=== PATIENT | female | born 1935 | race Asian ===

== ENCOUNTER → 2018-08-01 | Outpatient (CLI) | payer MEDICARE, OTHER ==
[~2018-08-01] MED LIST: ALEN70TA43 PO; ATOR10TA24 PO; CHOL200025 PO; CYA1000 PO; EXEM25TA4 PO; FISH1CAP15 PO; FLAX100029 PO; FLU180SY11 IM; TELM1TAB18 PO; VITA-198 PO
[2018-08-01 12:13] LABS: PLATELET COUNT, AUTOMATED 295 K/uL (150-450)
== END ==
LOC: LAB 11:41
PROVIDERS: ATTEND Family Medicine
DX: I10 Essential (primary) hypertension (principal)
CPT/HCPCS: 36415; 82040; 82247; 82310; 82374; 82435; 82565; 82947; 84075; 84132; 84155; 84295; 84450; 84460; 84520; 85025

== ENCOUNTER → 2018-08-17 | Outpatient (CLI) | payer MEDICARE, OTHER ==
--- NOTE | 2018-08-17 13:33 | RADIOLOGY IMAGING REPORT ---
FACILITY: [facility] - [place] PATIENT NAME: Jem Thomas : 1935 MR: [id number] V: [id number] EXAM DATE: ORDERING PHYSICIAN: SHIKHA MENDEZ TECHNOLOGIST: Location: [facility] - [place] Patient: Jem Thomas : 1935 Visit/Account:[id number] Date of Sevice: 08/17/2018 DEXA Scan Clinical history: Osteoporosis. Comparison: None available. LUMBAR SPINE: The bone mineral density (BMD) measured from L1-L4 correlates with a Z-score 2.3 and a T-score of 0.3 which is Normal as defined by the World Health Organization. The corresponding risk of fracture in the lumbar spine is Not increased compared with a young adult reference population. HIP: Bone mineral density (BMD) measured in the Left total hip region correlates with a Z-score 0.8 and a T-score of -1.5 which is osteopenia as defined by the World Health Organization. The corresponding r isk of fracture in the hip is 3 times increased compared with a young adult reference population. T score left femoral neck -2.5 Bone mineral density (BMD) measured in the Femoral Neck region measures 0.696 g/cm2. Impression: 1. Lumbar spine: Normal. 2. Left Hip: Osteopenia. 3. Femoral Neck: Bone Mineral Density is 0.696 g/cm2 The next DEXA scan of this patient should include the following sites: L1-L4 and the left hip. FRAX? WHO Fracture Risk Assessment Tool link: <http://www.shef.ac.uk/FRAX/tool.jsp?locationValue=9> PLEASE NOTE: 1) The World Health Organization defines low BMD as follows: T-score Normal > -1 Osteopenia < -1 and > -2.5 Osteoporosis < -2.5 without fractures Established osteoporosis < -2.5 with fractures 2) In general, you may wish to consider: Diagnosis Treatment Follow-up DEXA Normal BMD Prevention 2-3 years Osteopenia Prevention/therapy 1-2 years Osteoporosis Therapy Yearly 3) Fracture risk estimated from the T-score is more accurate for vertebral fractures (often spontane ous) than for hip fractures. . Report Dictated By: Debbie Aguirre MD at 08/17/2018 1:29 PM Report E-Signed By: Debbie Aguirre MD at 08/17/2018 1:30 PM WSN:[email or web address]
== END ==
LOC: MAMO 01:51
PROVIDERS: ATTEND Family Medicine
DX: M85.88 Other specified disorders of bone density and structure, other site (principal); Z85.3 Personal history of malignant neoplasm of breast
CPT/HCPCS: 77063; 77067; 77080

== ENCOUNTER 2018-08-26 08:47 | Emergency (ER) | payer MEDICARE, OTHER ==
[2018-08-26 08:50] VITALS: BP 143/92
--- NOTE | 2018-08-26 08:51 | ER Report ---
History and Physical Time Seen By MD: 09:00 HPI/ROS CHIEF COMPLAINT: Right lower back pain HISTORY OF PRESENT ILLNESS: Patient is an 82-year-old female presents to emergency department complaining of right-sided back pain that is worse with movement better with rest. Patient denies any radiation of pain. She denies any vaginal discharge or urinary symptoms. Patient denies any traumatic injury. She states she has taken Aleve with minimal relief of symptoms. Patient states she has no prior history of back problems. He shouldn't denies any abdominal pain she denies nausea vomiting. She denies fevers. REVIEW OF SYSTEMS: Respiratory: No cough, no dyspnea. Cardiovascular: No chest pain, no palpitations. Gastrointestinal: No vomiting, no abdominal pain. Musculoskeletal: Right lower back pain Allergies: Coded Allergies: Penicillins (Verified Allergy, Unknown, Hives, 08/01/18) guaifenesin (Verified Allergy, Unknown, Hives, 08/01/18) Home Meds Active Scripts Hydrocodone Bit/Acetaminophen (HYDROCODON-ACETAMINOPHEN 5-325) 1 Each Tablet, 1 EACH PO Q8H PRN for PAIN, #12 TAB 0 Refills TAKE ONE TABLET BY MOUTH EVERY 4-6 HOURS NEEDED FOR PAIN Prov:NISHA LEARY MD 08/26/18 Reported Medications Flaxseed Oil (FLAXSEED OIL) Unknown Strength Capsule, 1 CAP PO QODAY, CAPSULE 08/01/18 Fish Oil/Dha/Epa (FISH OIL 1,200 MG FISH OIL) Unknown Strength Capsule, 1 CAP PO QODAY, CAPSULE 08/01/18 Vitamin E Acetate (VITAMIN E) 1,000 Unit Capsule, 1 CAP PO DAILY, CAPSULE 08/01/18 Cyanocobalamin (Vitamin B-12) (VITAMIN B-12) 1,000 Mcg Tablet, 1 TAB PO DAILY 08/01/18 Cholecalciferol (Vitamin D3) (VITAMIN D3) 2,000 Unit Capsule, 1 CAP PO DAILY, CAPSULE 08/01/18 Alendronate Sodium (FOSAMAX) 70 Mg Tablet, 1 TAB PO QWK, TAB 08/01/18 Exemestane (EXEMESTANE) 25 Mg Tablet, 1 TAB PO DAILY 08/01/18 Telmisartan/Hydrochlorothiazid (MICARDIS HCT 80-25 MG TABLET) 1 Each Tablet, 1 EACH PO DAILY 08/01/18 Atorvastatin Calcium (LIPITOR) 10 Mg Tablet, 1 TAB PO DAILY, TAB 08/01/18 Past Medical/Surgical History Past medical history for osteopenia, history of hypercholesterolemia, history of breast cancer with lumpectomy Smoking Status: Never Smoker Constitutional Vital Sign - Last 24 Hours 08/26/18 08/26/18 08:50 09:50 Temp 98.1 Pulse 64 75 Resp 20 16 B/P (MAP) 143/92 Pulse Ox 93 94 O2 Delivery Room Air Room Air Physical Exam General appearance: alert no distress. Back: Thoracic spine has no spinal or paraspinal tenderness to palpation. Lumbar spine has no spinal tenderness moderateparaspinal tenderness on the right side Gastroinal: Abdomen is soft, non tender, no masses.. Skin: No lesions and no rashes. Vascular: Normal capillary refill and pulses to feet. Neurological: Motor function: leg strength normal and symmetric for both legs Sensory function: normal for all leg dermatomes. Straight leg raise negative to 70 degrees. Reflexes normal bilaterally on legs. [ ] DIFFERENTIAL DIAGNOSIS: After history and physical exam differential diagnosis was considered for back pain including muscular strain, herniated disc, intra- abdominal and renal causes. Medical Decision Making EKG/Imaging Imaging FACILITY: [facility] - [place] PATIENT NAME: Jem hTomas : 1935 MR: [id number] V: [id number] EXAM DATE: ORDERING PHYSICIAN: NISHA LEARY TECHNOLOGIST: Location: [facility] Patient: Jem Thomas : 1935 Visit/Account:[id number] Date of Sevice: 08/26/2018 LUMBAR SPINE 2 OR 3 VIEW COMPARISON: None. HISTORY: right side back pain TECHNIQUE: Lumbar spine radiographs (3 views) FINDINGS: ALIGNMENT: Normal alignment. VERTEBRAL BODIES: There are 5 lumbar vertebral bodies. Intact vertebral body heights without fracture or osseous lesion. Bulky endplate spurring anteriorly and laterally throughout the lumbar spine with facet joint hypertrophy and sclerosis at L4-5 and L5-S1 bilaterally, advanced at L5-S1. DISC SPACES: Mild disc height loss at each level. SACROILIAC JOINTS: Mild degenerative changes bilaterally, no definite effusion. OTHER: Mild aortoiliac calcifications. Similar degenerative changes in the visualized lower thoracic spine. IMPRESSION: Moderate lumbar spine degenerative changes without acute fracture or subluxation. Report Dictated By: Jerry Guerin at 08/26/2018 9:28 AM Report E-Signed By: Jerry Guerin at 08/26/2018 9:31 AM WSN:[id number] ED Course/Re-evaluation ED Course Plan at this time will be to perform x-ray imaging of the lumbar spine. Decision to Disposition Date: Aug 26, 2018 Decision to Disposition Time: 09:42 Depart Departure Latest Vital Signs Vital Signs Date Time Temp Pulse Resp B/P (MAP) Pulse Ox O2 Delivery O2 Flow Rate FiO2 08/26/18 09:50 75 16 94 Room Air 08/26/18 08:50 98.1 143/92 Impression: Primary Impression: Low back pain Condition: Improved Disposition: HOME OR SELF-CARE Referrals: SHIKHA MENDEZ MD (PCP) call to schedule a follow up appointment if your symptoms persist for more than 7 days New Scripts Hydrocodone Bit/Acetaminophen (HYDROCODON-ACETAMINOPHEN 5-325) 1 Each Tablet 1 EACH PO Q8H PRN for PAIN, #12 TAB 0 Refills TAKE ONE TABLET BY MOUTH EVERY 4-6 HOURS NEEDED FOR PAIN Prov: NISHA LEARY MD 08/26/18 Patient Instructions: Acute Low Back Pain (ED) Problem Qualifiers Primary Impression: Low back pain Chronicity: acute Back pain laterality: right Sciatica presence: without sciatica Qualified Codes: M54.5 - Low back pain NISHA LEARY MD Aug 26, 2018 08:51
--- NOTE | 2018-08-26 09:35 | RADIOLOGY IMAGING REPORT ---
FACILITY: [facility] - [place] PATIENT NAME: Jem Thomas : 1935 MR: [id number] V: [id number] EXAM DATE: ORDERING PHYSICIAN: NISHA LEARY TECHNOLOGIST: Location: [facility] - [place], [place] Patient: Jem Thomas : 1935 Visit/Account:[id number] Date of Sevice: 08/26/2018 LUMBAR SPINE 2 OR 3 VIEW COMPARISON: None. HISTORY: right side back pain TECHNIQUE: Lumbar spine radiographs (3 views) FINDINGS: ALIGNMENT: Normal alignment. VERTEBRAL BODIES: There are 5 lumbar vertebral bodies. Intact vertebral body heights without fractu re or osseous lesion. Bulky endplate spurring anteriorly and laterally throughout the lumbar spine wi th facet joint hypertrophy and sclerosis at L4-5 and L5-S1 bilaterally, advanced at L5-S1. DISC SPACES: Mild disc height loss at each level. SACROILIAC JOINTS: Mild degenerative changes bilaterally, no definite effusion. OTHER: Mild aortoiliac calcifications. Similar degenerative changes in the visualized lower thoracic spine. IMPRESSION: Moderate lumbar spine degenerative changes without acute fracture or subluxation. Report Dictated By: Jerry Guerin at 08/26/2018 9:28 AM Report E-Signed By: Jerry Guerin at 08/26/2018 9:31 AM WSN:[id number]
[2018-08-26] MEDS ORDERED: LOR5/325 PO (09:44)
[2018-08-29] MEDS ORDERED: IBUP600T22 PO (10:36)
== END 2018-08-26 09:50 | disposition home or self-care (01) ==
LOC: ER 09:09
DX: M54.5 Low back pain (principal)
CPT/HCPCS: 72100; 99283

== ENCOUNTER → 2018-09-05 | Outpatient (CLI) | payer MEDICARE, OTHER ==
[~2018-09-05] MED LIST changes: +IBUP600T22 PO; +LOR5/325 PO
[2018-09-05 11:03] LABS: PLATELET COUNT, AUTOMATED 345 K/uL (150-450)
== END ==
LOC: LAB 10:25
PROVIDERS: ATTEND Nurse Practitioner Primary Care
DX: M54.5 Low back pain (principal)
CPT/HCPCS: 36415; 81001; 82040; 82247; 82310; 82374; 82435; 82565; 82947; 84075; 84132; 84155; 84295; 84450; 84460; 84520; 85025; 87088

== ENCOUNTER → 2018-09-06 | Outpatient (CLI) | payer MEDICARE, OTHER ==
[~2018-09-06] MED LIST changes: +IOPAMIDOL 76% 75 ML INFUS BTL 75 ML ONE; +TRAM-420 PO
--- NOTE | 2018-09-06 17:54 | RADIOLOGY IMAGING REPORT ---
FACILITY: [facility] - [place] PATIENT NAME: Jem Thomas : 1935 MR: [id number] V: [id number] EXAM DATE: ORDERING PHYSICIAN: ADAMS REIS TECHNOLOGIST: Location: [facility] Patient: Jem Thomas : 1935 Visit/Account:[id number] Date of Sevice: 09/06/2018 ABDOMEN/PELVIS WITH CONTRAST Provided history: Low back pain, unintentional weight loss, low appetite Additional pertinent history: none TECHNIQUE: Spiral scan was obtained from the lower chest through the symphysis with intravenous cont rast Contrast dose: 75 mL Isovue 370 intravenously. Source images were reformatted in the coronal and sagittal planes. Additional series performed today: none One of the following dose optimization techniques was utilized in the performance of this exam: Autom ated exposure control; adjustment of the mA and/or kV according to the patient's size; or use of an i terative reconstruction technique. Specific details can be referenced in the facility's radiology CT exam operational policy. COMPARISON STUDIES: No relevant priors FINDINGS: Lower chest: Moderate sized layering right pleural effusion. No pleural-based nodularity. No complexi ty of the fluid. Minor compressive atelectasis. No right lower lobe infiltrate. There is a surgical s ite in the lateral right breast with surrounding indistinct soft tissue of unclear nature. A mammogra m of 08/17/18 describes benign postsurgical scarring. Liver/biliary: Hypoenhancing foci in both right and left lobe suggest benign cysts. No concerning foc al hepatic lesion. Gallbladder and bile ducts negative. Pancreas: There is a dilated main pancreatic duct as well as one side branch in the body the pancreas with an abrupt cut off near the head and body junction. The level, there is a potential mass measuri ng 7 x 13 mm transverse diameter and 7 mm craniocaudal. A small air-containing diverticulum from the duodenum projects over the medial margin of the pancreat ic head and uncinate process. I, no additional masses. No obstruction of the bile duct. No regional a denopathy. Spleen: Negative Adrenal glands: Negative Kidneys / ureters / bladder / genitourinary / retroperitoneum: There are moderate-sized varices left adnexa with an enlarged left gonadal vein. No adnexal masses. No free fluid. Uterus negative. Bowel / peritoneum / mesenteries: Negative Vessels: negative Lymph nodes: negative Body wall: Negative Bones: Advanced osteopenia. There is a 60% compression deformity of the L3 body with subchondral scle rosis and retropulsion of the posterior-superior body. This does result in mild narrowing of the cent ral canal. No associated soft tissue mass. No lytic or blastic bone lesion. There are several subacute to chronic remodeling lower right rib fractures without underlying lytic o r blastic lesion. These are in an oblique line based upon the coronal series and very likely post tra umatic in origin. IMPRESSION: 1. Findings described above in the pancreas concerning for a small mass at the head-body junction obs tructing the main duct. Suggest MRI for confirmation and further assessment. 2. Moderate size right pleural effusion of unclear origin. 3. Left adnexal varices and enlarged left gonadal vein. Correlate for evidence of pelvic congestion s yndrome. Report Dictated By: Rubio Reyes MD at 09/06/2018 5:36 PM Report E-Signed By: Rubio Reyes MD at 09/06/2018 5:50 PM WSN:[id number]
== END ==
LOC: CT 14:29
PROVIDERS: ATTEND Nurse Practitioner Primary Care
DX: J90 Pleural effusion, not elsewhere classified (principal); K76.89 Other specified diseases of liver; M85.88 Other specified disorders of bone density and structure, other site
CPT/HCPCS: 36415; 74177; Q9967; 82040; 82247; 82310; 82374; 82435; 82565; 82947; 84075; 84132; 84155; 84295; 84450; 84460; 84520

== ENCOUNTER → 2018-09-08 | Outpatient (CLI) | payer MEDICARE, OTHER ==
[~2018-09-08] MED LIST changes: +GADOBENATE 529MG/1ML 15ML VIAL IVP ONE; -IOPAMIDOL 76% 75 ML INFUS BTL 75 ML ONE; +NS(*) 0.9% 50 ML BAG 50 ML ONE
--- NOTE | 2018-09-08 16:06 | RADIOLOGY IMAGING REPORT ---
FACILITY: [facility] PATIENT NAME: Jem Thomas : 1935 MR: [id number] V: [id number] EXAM DATE: ORDERING PHYSICIAN: ADAMS REIS TECHNOLOGIST: Location: [facility] Patient: Jem Thomas : 1935 Visit/Account:[id number] Date of Sevice: 09/08/2018 EXAMINATION: MRI abdomen without IV contrast MRI abdomen with IV contrast MRCP 09/08/2018 12:37 PM HISTORY: Pancreatic mass by CT TECHNIQUE: Multiplanar multisequence imaging of the abdomen was performed including thin slice heavil y T2-weighted MRCP sequencing. 3-D imaging was performed according to protocols developed by the rad iologists and the facility radiology staff. Back Sewer images are stored on PACS. Contrast: 13 mL of IV MultiHance. COMPARISON STUDIES: CT 09/06/2018 FINDINGS: Gallbladder bile ducts: Gallbladder is unremarkable. No visible cholelithiasis. Although she misti l in caliber with CBD measuring about 6 mm. No choledocholithiasis or ductal stricture. Liver: Scattered tiny cysts in both lobes. Pancreas: Slightly bilobed prominence along the anteroinferior aspect of the neck of the pancreas cor relates with the area shown by the CT measuring about 1.3 x 0.7 cm. This enhances fairly homogeneous ly 2 glandular parenchyma of the pancreas and does not show clearly increased diffusion-weighted sign al. Some of the duct in the tail is a bit prominent at 5 mm. There are scattered dilated side branc hes most prominently extending anteriorly in the body measuring 1 cm, and a few additional scattered tiny cysts which do not communicate with the ductal tree. No other enhancing pancreatic focus demons trated. Spleen: negative Adrenal glands: negative Kidneys / retroperitoneum: negative Bowel / peritoneum / mesenteries: negative Vessels: negative Musculoskeletal / Body wall: Degenerative changes in the spine. Lymph node assessment: negative Lower chest: Moderate right and minimal left effusions. IMPRESSION: 1. 1.3 cm bilateral protuberance along the front of the pancreatic body. This enhances fairly homog eneously 2 remaining pancreas and could be exophytic normal glandular tissue. There is also a ductal prominence and prominent side branches elsewhere. Six-month follow-up MR is recommended. 2. Scattered small liver cysts. 3. Moderate right effusion. Report Dictated By: Antony Lindsay MD at 09/08/2018 3:48 PM Report E-Signed By: Antony Lindsay MD at 09/08/2018 4:02 PM WSN:[email or web address]
== END ==
LOC: MRI 02:17
PROVIDERS: ATTEND Nurse Practitioner Primary Care
DX: K76.89 Other specified diseases of liver (principal); J91.8 Pleural effusion in other conditions classified elsewhere; Q45.2 Congenital pancreatic cyst
CPT/HCPCS: 74183; A9577; J7050

== ENCOUNTER → 2018-09-13 | Outpatient (CLI) | payer MEDICARE, OTHER ==
[~2018-09-13] MED LIST changes: -GADOBENATE 529MG/1ML 15ML VIAL IVP ONE; -NS(*) 0.9% 50 ML BAG 50 ML ONE
== END ==
LOC: LAB 16:15
PROVIDERS: ATTEND Family Medicine
DX: R63.4 Abnormal weight loss (principal); R53.83 Other fatigue; N17.9 Acute kidney failure, unspecified; M81.0 Age-related osteoporosis without current pathological fracture
CPT/HCPCS: 36415; 82306; 82310; 82374; 82435; 82565; 82947; 84132; 84295; 84443; 84520

== ENCOUNTER → 2018-09-22 | Outpatient (CLI) | payer MEDICARE, OTHER ==
[~2018-09-22] MED LIST changes: +IOPAMIDOL 76% 75 ML INFUS BTL 75 ML ONE
--- NOTE | 2018-09-22 11:43 | RADIOLOGY IMAGING REPORT ---
[place] [facility] [place]: Jem Thomas : 1935 MR: [id number] V: [id number] EXAM DATE: ORDERING PHYSICIAN: SHIKHA MENDEZ TECHNOLOGIST: Location: [facility] Patient: Jem Thomas : 1935 Visit/Account:[id number] Date of Sevice: 09/22/2018 CHEST W CONTRAST History: Pleural effusions, history of breast cancer TECHNIQUE: Contiguous axial images were performed through the chest to the level of the adrenal gla nds following the administration of IV contrast. Coronal and sagittal reformatting was also perform ed.Dose Lowering Technique One of the following dose optimization techniques was utilized in the performance of this exam: Autom ated exposure control; adjustment of the mA and/or kV according to the patient's size; or use of an i terative reconstruction technique. Specific details can be referenced in the facility's radiology C T exam operational policy. Contrast: 75 mL Isovue-370 COMPARISON STUDIES: CT abdomen pelvis September 06, 2018. Lungs / Pleura: There is a moderate posterior layering right pleural effusion the inferior portion appears similar to the recent CT of the abdomen and pelvis. There is biapical pleural thickening and fibrotic changes more prominent on the right than the left Mediastinum/nodes: negative. Heart and vessels: negative. Musculoskeletal / Body wall: There are sclerotic densities with old appearing fractures through num erous right-sided ribs and the right scapula is may be related to prior trauma however correlation wi th patient's trauma history needed to exclude pathologic fractures from metastases. In the upper outer quadrant of the left breast there is an masslike area with spiculations measuring approximately 2.1 x 1.4 x 1.4 cm. This is in location of a previous biopsy. Mammographically this i s less prominent than on the post biopsy mammograms likely representing architectural distortion and postsurgical scarring. Given the masslike appearance on CT however further evaluation with left tesfaye st ultrasound is recommended. There are postsurgical changes of the lateral right breast and right axilla Upper abdomen: Atrophic appearing pancreas and incompletely imaged is the hypoattenuating region pr ojecting from the anterior aspect of the junction of the head and body of the pancreas. This was johnnie wn by prior MR to enhance homogeneously relative to the adjacent pancreas and could be exophytic glan dular tissue IMPRESSION: Moderate posterior layering right pleural effusion. The visualized portion is pleural effusion on th e prior CT of abdomen from September 06, 2018 appears similar Biapical pleural thickening and fibrotic changes more prominent on the right than the left. Short-te rm interval follow-up recommended Sclerotic densities and old appearing fractures through numerous right-sided ribs in the right scapul a which may be related to old trauma. Correlation with patient's trauma history needed to exclude po ssibility of pathologic fractures from metastases The upper outer quadrant left breast is a masslike area with spiculations. This is in the location o f a previous lap seat. Mammographically this is less prominent than on the immediate postbiopsy mamm ograms likely representing architectural distortion and post surgical scarring however given the mass like appearance on CT further evaluation with left breast ultrasound is recommended Atrophic appearing pancreas and incompletely imaged is the hypoattenuating region projecting from the anterior aspect the junction of the head and body the pancreas. This was shown by prior MR to enhan ce homogeneously relative to the adjacent pancreas could be exophytic glandular tissue however as men tioned in the prior MR report a six month follow-up MR is recommended Report Dictated By: Debbie Aguirre MD at 09/22/2018 11:21 AM Report E-Signed By: Debbie Aguirre MD at 09/22/2018 11:38 AM WSN:[email or web address]
== END ==
LOC: CT 00:43
PROVIDERS: ATTEND Family Medicine
DX: J90 Pleural effusion, not elsewhere classified (principal)
CPT/HCPCS: 71260; Q9967

== ENCOUNTER 2018-10-07 11:04 | Outpatient (RCR) | payer MEDICARE, OTHER ==
[2018-10-06 09:04] VITALS: BP 136/72
[2018-10-06 10:28] LABS: PLATELET COUNT, AUTOMATED 282 K/uL (150-450)
--- NOTE | 2018-10-06 12:18 | ONCOLOGY CONSULTATION ---
EVENT DATE: October 06, 2018 REFERRING PHYSICIAN BENTLEY Botello REASON FOR CONSULTATION Evaluation and management of left breast mass and pancreatic mass and right pleural effusion in a patient with a history of bilateral breast cancer. ONCOLOGY HISTORY Patient is an 83-year-old English who had a history of right breast cancer status post right lumpectomy done in 2002 for T1 N0 M0 infiltrating ductal carcinoma. She had also left breast cancer status post left lumpectomy in 2013. As per patient, she had radiation therapy after each procedure but no chemo. She is currently maintained on exemestane 25 mg daily, most probably for five years after her last breast cancer in 2013 on the left side. Patient had lower back pain and she had an MRI on August 26, 2018, which showed moderate lumbar spine degenerative changes without acute fracture or subluxation. She had also CT chest with contrast done on September 22, 2018 which showed moderate right pleural effusion. There are some sclerotic densities and old appearing fractures through numerous right sided ribs in the right scapula which may be related to old trauma but patient denies any trauma to that area. She had also an upper outer quadrant left breast mass about 2.1 cm, which is speculated. There was also hypoattenuating area of the pancreas projecting from the anterior aspect of the junction of the head and body of the pancreas. MRI of the abdomen done on September 08, 2018 showed 1.3 cm bilateral protuberance along the front of the pancreatic body which enhances fairly homogenously. There is also ductal prominence. CT abdomen and pelvis done on September 08, 2018 showed a 1.3 cm mass at the head-body junction of the pancreas obstructing the main duct with moderate size right pleural effusion. PAST MEDICAL HISTORY 1. Hyperlipidemia. 2. Hypertension. 3. Bilateral breast cancer. 4. Osteopenia. 5. Vitamin D deficiency. PAST SURGICAL HISTORY 1. Right breast lumpectomy, 2002. 2. Left breast lumpectomy, 2013. 3. Caesarean section x4. FAMILY HISTORY Sister had liver cancer and with that. Her father had stomach cancer. No history of breast cancer in her family. SOCIAL HISTORY Patient is . She has four children. 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 She drinks wine occasionally. Denies any abuse of tobacco or illicit drugs. CURRENT MEDICATIONS 1. Tramadol 50 mg every six hours p.r.n. 2. Ibuprofen 600 mg every eight hours as needed for pain. 3. Flaxseed Oil one capsule daily. 4. Fish Oil one capsule every other day. 5. Vitamin E 1000 units daily. 6. Vitamin B12 1000 micrograms daily orally. 7. Vitamin D3 2000 units daily. 8. Fosamax 70 mg tablet every week. 9. Exemestane 25 mg daily. 10. Micardis 80/25 one tablet daily. 11. Lipitor 10 mg p.o. daily. ALLERGIES PENICILLIN, which causes hives. MUCINEX, which causes hives. REVIEW OF SYSTEMS CONSTITUTIONAL: No appetite or weight change. No fever, chills or sweating. No recent infection. HEENT: Ears: No tinnitus or hearing problem. Nose: No nasal discharge or epistaxis. Throat: No sore throat or mouth ulcers. Eyes: No diplopia or visual changes. RESPIRATORY: No shortness of breath. No cough, expectoration or hemoptysis. CARDIOVASCULAR: No chest pain, orthopnea, or paroxysmal nocturnal dyspnea (PND). No edema. No palpitations. GASTROINTESTINAL: No nausea or vomiting. No diarrhea or constipation. No change in bowel movements. No heartburn or swallowing difficulties. No abdominal pain. No jaundice. No hematemesis, melena or rectal bleeding. GENITOURINARY: Patient has had heavy periods for years, and she has been seen by a software educator, and she was offered uterine ablation, but the patient refused the procedure. As per patient, she has had heavy periods for a total of seven days every month. MUSCULOSKELETAL: She has lower back pain. NEUROLOGICAL: No tingling or numbness in the hands or feet. No headaches or convulsions. HEMATOLOGIC/LYMPHATIC: She bruises easily. SKIN: No skin rash or lumps. PSYCHIATRIC: No anxiety or depression. PHYSICAL EXAMINATION GENERAL: Looks stable. Well-developed, well-nourished, and in no acute distress. VITAL SIGNS: Blood pressure 156/72, pulse80 per minute, respirations 16 per minute, temperature 96.5, pulse ox 91% on room air. HEENT: Head: Atraumatic. No sinus tenderness to palpation. Eyes: No icterus or conjunctivitis. Mouth and Throat: No oral thrush or mucositis. NECK: Supple. No cervical or supraclavicular lymphadenopathy. LUNGS: Clear to auscultation and percussion bilaterally. HEART: Regular rate and rhythm. No gallops, murmurs, clicks or rubs. ABDOMEN: Soft and lax. No tenderness. No hepatosplenomegaly. No masses. EXTREMITIES: No cyanosis, clubbing or edema. LYMPHATICS: No peripheral lymphadenopathy. NEUROLOGICAL: Conscious, alert and oriented x3. No focal motor or sensory deficits. PSYCHIATRIC: Mood and affect appear normal. SKIN: No skin rash, bruise or purpuric eruption. IMPRESSION 1. Bilateral breast cancer, status post lumpectomy of right breast in 2002 and left breast in 2013. Both procedures followed by adjuvant radiation therapy but she never received chemotherapy before. After her left lumpectomy in 2013, she was maintained on exemestane 25 mg daily. She was seen to have an incidental finding of 2.1 cm speculated mass in the left breast by CT chest done on September 22, 2018. Given this information, patient is scheduled already to have an ultrasound of the left breast on October 10 but I am planning also to include MRI of the breast because there are no palpable masses and her mammogram done on August 24, 2018 was actually read as benign. If there is a mass there by the other procedures, then we will proceed with biopsy of that mass. I am planning also to check the tumor markers for breast cancer with CEA, CA 15-3 and CA 27-29. 2. Moderate sized right pleural effusion, unclear the cause of it but patient had bilateral breast cancer in the past. I am planning to proceed with ultrasound-guided thoracentesis of the right pleural effusion to be sent for cytology for further evaluation. 3. Pancreatic mass, 1.3 cm, at the junction of the head and the body of the pancreas seen by the MRI of the abdomen and CT abdomen and pelvis done recently in August 2018. I am planning to refer the patient to Dr. Ramirez, the regional sales consultant in [place], for EUS and biopsy of this mass for further evaluation. I am planning also to check the CA 19-9 to see if it is high to suggest pancreatic cancer. PLAN 1. CBC and chem panel. 2. CEA, CA 27-29, CA 15-3 and CA 19-9. 3. Refer to Dr. Ramirez for EUS and biopsy of the pancreatic mass. 4. Breast MRI. 5. Ultrasound-guided thoracentesis of the right pleural fluid for cytology. 6. Patient to return after the above for further evaluation and management. 7. Patient to contact us for any new concerns or complaints. PHILLD
[~2018-10-07 11:04] MED LIST changes: -IOPAMIDOL 76% 75 ML INFUS BTL 75 ML ONE
[2018-10-07 11:19] VITALS: BP 127/69
[2018-10-07 12:00] LABS: INR 0.98
[2018-10-07] MEDS ORDERED: GADOBENATE 529MG/1ML 15ML VIAL IVP ONE (12:02)
[2018-10-07] MEDS ORDERED: NS(*) 0.9% 50 ML BAG 50 ML ONE (12:02)
--- NOTE | 2018-10-24 10:08 | RADIOLOGY IMAGING REPORT ---
FACILITY: [facility] PATIENT NAME: SARAI RADER : [id number] MR: [id number] V: [id number] EXAM DATE: ORDERING PHYSICIAN: JONEL FRAZIER TECHNOLOGIST: Deborah Carlson PROCEDURE:BREAST BILATERAL W/O AND/OR WITH CONTRAST COMPARISON:Bilateral mammogram 08/17/18, 05/31/17, 05/29/[address] 09/22/18. INDICATIONS:Prior history of breast cancer bilaterally with lumpectomies and radiation. TECHNIQUE: All imaging was preformed prone in a dedicated breast coil. Axial and coronal T1 weighted images, axial T2 images, axial STIR images, axial gradient echo images, and axial fat saturated dynamically enhanced imaging of both breasts was performed using 5 dynamic sequences. The dynamic series was timed for 90 second a peak. Subtraction imaging was preformed. 12mL of Multihance was utilized for the post contrast portion of the examination. Post processing was performed using a [employer] workstation. FINDINGS: Scattered fibroglandular tissue is seen in both breasts. The background parenchymal enhancement is mild. In the upper outer quadrant of the Left breast in the posterior 1/3 there is a 2.3 x 1.3cm area of spiculation with decreased T1 signal intensity and minimal T2 signal intensity without contrast enhancement. This is in a previous lumpectomy site and likely represents scar tissue. In the upper outer quadrant of the Right breast in the posterior 1/3 there is a 2.6 x 1.1cm slightly irregular area of T1, T2 signal intensity without contrast enhancement also consistent with scaring. There are no abnormal areas of mass like or non-mass like enhancement in either breast. No abnormality of the liver or visualized bones is seen. There is a Right pleural effusion present as seen on recent chest CT. DIAGNOSTIC CATEGORY 2--BENIGN FINDING. RECOMMENDATIONS: ROUTINE MAMMOGRAM AND CLINICAL EVALUATION. IMPRESSION: BIRADS 2: Benign finding. 1. There are areas of scaring from previous lumpectomies in the upper outer quadrants of both breasts although no abnormal contrast enhancement is seen. 2. Right pleural effusion. PLEASE NOTE:A NORMAL MRI DOES NOT EXCLUDE THE POSSIBILITY OF BREAST CANCER. A CLINICALLY SUSPICIOUS PALPABLE LUMP SHOULD BE BIOPSIED. CORRELATION WITH CLINICAL EXAM AND OTHER IMAGING STUDIES IS RECOMMENDED. Dictated by: Debbie Aguirre M.D. on 10/10/2018 at 17:30 Transcribed by: DU on 10/11/2018 at 11:18 Approved by: Debbie Aguirre M.D. on 10/11/2018 at 12:16 [facility]
[2018-11-08] MEDS ORDERED: EXEM25TA4 PO ×2 (16:30→16:34)
== END 2018-11-23 09:30 | disposition home or self-care (01) ==
LOC: SPU 11:04
PROVIDERS: ATTEND Internal Medicine Hematology
DX: C50.919 Malignant neoplasm of unspecified site of unspecified female breast (principal); C79.51 Secondary malignant neoplasm of bone; K86.9 Disease of pancreas, unspecified; Q45.3 Other congenital malformations of pancreas and pancreatic duct; K76.89 Other specified diseases of liver; J90 Pleural effusion, not elsewhere classified; Z92.3 Personal history of irradiation; I10 Essential (primary) hypertension; E55.9 Vitamin D deficiency, unspecified; M85.80 Other specified disorders of bone density and structure, unspecified site; E78.5 Hyperlipidemia, unspecified
CPT/HCPCS: 0159T; 36415; 82378; 85025; 85610; 86300; A9577; C8908; G0463; J7050; 77059; 82040; 82247; 82310; 82374; 82435; 82565; 82947; 84075; 84132; 84155; 84295; 84450; 84460; 84520; 99202

== ENCOUNTER → 2018-10-10 | Outpatient (CLI) | payer MEDICARE, OTHER ==
--- NOTE | 2018-10-10 18:10 | RADIOLOGY IMAGING REPORT ---
FACILITY: [facility] [place] PATIENT NAME: Jem Thoams : 1935 MR: [id number] V: [id number] EXAM DATE: [id number] ORDERING PHYSICIAN: JONEL FRAZIER TECHNOLOGIST: [place] [facility] [place]em [place] : 1935 Visit/Account:[id number] Date of Sevice: 10/10/2018 Exam type: THORACENTESIS History: Right pleural effusion Comparison: CT of the chest September 22, 2018. Findings: Right pleural effusion is demonstrated however an acceptable pocket of fluid without intervening lung could not be identified there for the thoracentesis was not performed IMPRESSION: 1. As above Report Dictated By: Debbie Aguirre MD at 10/10/2018 6:06 PM Report E-Signed By: Debbie Aguirre MD at 10/10/2018 6:07 PM WSN:[email or web address]
== END ==
LOC: MAMO 13:22
PROVIDERS: ATTEND Internal Medicine Hematology
DX: N63.20 Unspecified lump in the left breast, unspecified quadrant (principal); C50.919 Malignant neoplasm of unspecified site of unspecified female breast; J91.8 Pleural effusion in other conditions classified elsewhere
CPT/HCPCS: 32555; A7048

== ENCOUNTER → 2018-11-18 | Outpatient (CLI) | payer MEDICARE, OTHER ==
--- NOTE | 2018-11-18 09:49 | RADIOLOGY IMAGING REPORT ---
FACILITY: [facility] PATIENT NAME: Jem Thomas : 1935 MR: [id number] V: [id number] EXAM DATE: ORDERING PHYSICIAN: SHIKHA MENDEZ TECHNOLOGIST: Location: [facility] Patient: Jem Thomas : 1935 Visit/Account:[id number] Date of Sevice: 11/18/2018 Exam type: CHEST PA LAT History: plural effusion Comparison: CT chest September 22, 2018. Findings: There is a small right pleural effusion. No evidence of airspace consolidation identified. No evide nce of overt pulmonary edema. Cardiac silhouette is normal in size. There are surgical clips in the right axillary region and multiple old right-sided rib fractures IMPRESSION: 1. Small right pleural effusion Report Dictated By: Debbie Aguirre MD at 11/18/2018 9:42 AM Report E-Signed By: Debbie Aguirre MD at 11/18/2018 9:45 AM WSN:[email or web address]
== END ==
LOC: RAD 08:36
PROVIDERS: ATTEND Family Medicine
DX: J90 Pleural effusion, not elsewhere classified (principal)
CPT/HCPCS: 71046

== ENCOUNTER 2018-12-01 12:33 | Outpatient (RCR) | payer MEDICARE, OTHER ==
[2018-12-01 12:43] VITALS: BP 159/76
--- NOTE | 2018-12-01 14:52 | [facility] ONCOLOGY NOTE ---
EVENT DATE: December 01, 2018 DIAGNOSES 1. Pancreatic mass at the junction of the head and neck of the pancreas. 2. Right pleural effusion. 3. History of bilateral breast cancer. CHIEF COMPLAINT Patient is here today for followup of her pancreatic mass and possible recurrence of her lung cancer. ONCOLOGY HISTORY Patient is an 83-year-old Mongolian who had a history of right breast cancer, status post right lumpectomy done in 2002 for T1 N0 M0 infiltrating ductal carcinoma. She had also left breast cancer, status post left lumpectomy in 2013. As per patient, she had radiation therapy after each procedure, but no chemo. She is currently maintained on exemestane 25 mg daily, most probably for five years after her last breast cancer in 2013 on the left side. Patient had lower back pain, and she had an MRI on August 26, 2018, which showed moderate lumbar spine degenerative changes without acute fracture or subluxation. She had also CT chest with contrast done on September 22, 2018, which showed moderate right pleural effusion. There are some sclerotic densities and old-appearing fractures through numerous right-sided ribs in the right scapula which may be related to old trauma, but patient denies any trauma to that area. She had also an upper-outer quadrant left breast mass about 2.1 cm, which is spiculated. There was also hypoattenuating area of the pancreas projecting from the anterior aspect of the junction of the head and body of the pancreas. MRI of the abdomen done on September 08, 2018, showed 1.3 cm bilateral protuberance along the front of the pancreatic body which enhances fairly homogenously. There is also ductal prominence. CT abdomen and pelvis done on September 08, 2018, showed a 1.3 cm mass at the head-body junction of the pancreas, obstructing the main duct with moderate-size right pleural effusion. HISTORY OF PRESENT ILLNESS Patient is here today for followup of her history of possible recurrent breast cancer and pancreatic mass. She is doing fine currently except for having some pain in her hips, but other than that, she is doing really very well. PAST MEDICAL HISTORY 1. Hyperlipidemia. 2. Hypertension. 3. Bilateral breast cancer. 4. Osteopenia. 5. Vitamin D deficiency. PAST SURGICAL HISTORY 1. Right breast lumpectomy 2002. 2. Left breast lumpectomy 2013. 3. Caesarean section x4. FAMILY HISTORY Sister had liver cancer and with that. Her father had stomach cancer. No history of breast cancer in her family. SOCIAL HISTORY Patient is . She has four children. 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 She drinks wine occasionally. Denies any abuse of tobacco or illicit drugs. CURRENT MEDICATIONS 1. Tramadol 50 mg every six hours p.r.n. 2. Ibuprofen 600 mg every eight hours as needed for pain. 3. Flaxseed Oil one capsule daily. 4. Fish Oil one capsule every other day. 5. Vitamin E 1000 units daily. 6. Vitamin B12 1000 mcg daily orally. 7. Vitamin D3 2000 units daily. 8. Fosamax 70 mg tablet every week. 9. Exemestane 25 mg daily. 10. Micardis 80/25 one tablet daily. 11. Lipitor 10 mg p.o. daily. ALLERGIES PENICILLIN, which causes hives. MUCINEX, which causes hives. REVIEW OF SYSTEMS CONSTITUTIONAL: No appetite or weight change. No fever, chills, or sweating. No recent infection. HEENT: Ears: No tinnitus or hearing problem. Nose: No nasal discharge or epistaxis. Throat: No sore throat or mouth ulcers. Eyes: No diplopia or visual changes. RESPIRATORY: No shortness of breath. No cough, expectoration, or hemoptysis. CARDIOVASCULAR: No chest pain, orthopnea, or paroxysmal nocturnal dyspnea (PND). No edema. No palpitations. GASTROINTESTINAL: No nausea or vomiting. No diarrhea or constipation. No change in bowel movements. No heartburn or swallowing difficulties. No abdominal pain. No jaundice. No hematemesis, melena, or rectal bleeding. GENITOURINARY: No hematuria or dysuria. MUSCULOSKELETAL: Patient has pain in her hips. NEUROLOGICAL: No tingling or numbness in the hands or feet. No headaches or convulsions. HEMATOLOGIC/LYMPHATIC: No bleeding or easy bruising. No weakness or fatigue. No enlarged lymph nodes. SKIN: No skin rash or lumps. PSYCHIATRIC: No anxiety or depression. PHYSICAL EXAMINATION GENERAL: Looks stable. Well developed, well nourished, and in no acute distress. VITAL SIGNS: Blood pressure 159/76, pulse 70 per minute, respirations 16 per minute, temperature 97, pulse ox 96% on room air. HEENT: Head: Atraumatic. No sinus tenderness to palpation. Eyes: No icterus or conjunctivitis. Mouth and throat: No oral thrush or mucositis. NECK: Supple. No cervical or supraclavicular lymphadenopathy. LUNGS: Clear to auscultation and percussion bilaterally. HEART: Regular rate and rhythm. No gallops, murmurs, clicks, or rubs. ABDOMEN: Soft and lax. No tenderness. No hepatosplenomegaly. No masses. EXTREMITIES: No cyanosis, clubbing, or edema. LYMPHATICS: No peripheral lymphadenopathy. NEUROLOGICAL: Conscious, alert, and oriented x3. No focal motor or sensory deficits. PSYCHIATRIC: Mood and affect appear normal. SKIN: No skin rash, bruise, or purpuric eruption. DIAGNOSTIC DATA CBC shows white count 7.4, hemoglobin 14.7, hematocrit 43.3, platelets 282,000. Chem panel totally normal except BUN 20, creatinine 1.1. CEA is normal at 2.2, CA15-3 normal at 7, and CA27.29 is normal at 7.9. ASSESSMENT 1. Bilateral breast cancer, status post lumpectomy of the right breast in 2002 and the left breast in 2013. Both procedures followed by adjuvant radiation therapy, but she never received chemotherapy before. After her left lumpectomy in 2013, she was maintained on exemestane 25 mg daily. Incidentally, patient was found to have 2.1 cm spiculated mass in the left breast by CT chest done September 22, 2018. She had an ultrasound of the left breast October 10. Her recent MRI of both breasts done on September showed areas of scarring from previous lumpectomies in the upper-outer quadrants of both breasts, but no abnormal contrast enhancement was seen. There was also right pleural effusion. Given this information, patient most probably has benign scar, and I am planning to see her again in three months with CBC, chemistry panel, CA15-3, and CA27.29. If there will be any suspicion for malignancy, we will proceed with biopsy at that time. 2. Moderate-sized right pleural effusion of unclear etiology. If this one is getting is worse in the future, I am planning to get ultrasonographic-guided thoracentesis. 3. Pancreatic mass 1.3 cm of the junction of the head and the body of the pancreas seen by MRI of the abdomen. CT scan of the abdomen and pelvis done recently August 2018. Patient had an endoscopic ultrasound by Dr. Ramirez on the October, and cytology of the fluid was really negative for malignancy. Will continue to monitor that mass in the pancreas. CEA of the pancreatic fluid was 8.6 ng/mL or near normal. I am planning to repeat the imaging with her next visit to be sure that this pancreatic mass does not enlarge in size. PLAN 1. Continue followup. 2. Patient to return in three months with CBC, chem panel, CEA, CA19-9, CA27.29, and CT abdomen and pelvis with IV and oral contrast with her next visit. 3. Patient to contact us for any new concerns or complaints. PERRI
[2018-12-13] MEDS ORDERED: TELM1TAB18 PO (12:00)
== END 2018-12-21 07:13 | disposition home or self-care (01) ==
LOC: ONC 12:33
PROVIDERS: ATTEND Internal Medicine Hematology
DX: K86.9 Disease of pancreas, unspecified (principal); Q45.3 Other congenital malformations of pancreas and pancreatic duct; K76.89 Other specified diseases of liver; J90 Pleural effusion, not elsewhere classified; Z92.3 Personal history of irradiation; I10 Essential (primary) hypertension; E55.9 Vitamin D deficiency, unspecified; M85.80 Other specified disorders of bone density and structure, unspecified site; E78.5 Hyperlipidemia, unspecified; Z79.811 Long term (current) use of aromatase inhibitors
CPT/HCPCS: 99212

== ENCOUNTER → 2019-05-15 | Outpatient (CLI) | payer MEDICARE, OTHER ==
[~2019-05-15] MED LIST changes: +GADOBENATE 529MG/1ML 15ML VIAL IVP ONE; +NS(*) 0.9% 50 ML BAG 50 ML ONE
--- NOTE | 2019-05-15 09:30 | RADIOLOGY IMAGING REPORT ---
FACILITY: [facility] PATIENT NAME: Jem Thomas : 1935 MR: [id number] V: [id number] EXAM DATE: ORDERING PHYSICIAN: SHIKHA MENDEZ TECHNOLOGIST: Location: [facility] - [place] Patient: Jem Thomas : 1935 Visit/Account:[id number] Date of Sevice: 05/15/2019 MR ABDOMEN MRCP W & W/O CONTRAST HISTORY: Pancreatic lesion. Abnormal CT. ADDITIONAL HISTORY: None. TECHNIQUE: Multiplanar multisequence magnetic resonance imaging of the abdomen without and with intr avenous contrast including magnetic resonance cholangiopancreatography (MRCP). CONTRAST: 11 mL of MultiHance COMPARISON: CT 05/01/2019. MRI abdomen 09/08/2018 FINDINGS: Liver: Subcentimeter hepatic cysts. Gallbladder: Negative. Bile ducts: Nondistended and unremarkable. Spleen: Negative. Adrenal glands: Negative. Pancreas: Reidentified is dilatation of segments of the main pancreatic duct measuring up to 5 mm as well as dilatation of multiple sidebranches. Stable pancreatic atrophy involving a short segment of the pancreatic body. Pancreatic duct is normal caliber within the head with stable bilobed contour t o the pancreas at the site of pancreatic duct transition which has similar signal characteristics to the adjacent pancreas. No acute peripancreatic inflammatory change. Kidneys: Negative. Bowel/peritoneum/mesentery: Negative Lymph nodes: Negative Bones/soft tissues: Multilevel degenerative disc disease within the spine with severe compression def ormity centrally at L3 with Schmorl's node. Visualized lung bases: Negative Visualized pelvis: Negative Vessels: Negative Other findings: None significant IMPRESSION: 1. Stable appearance of the pancreas with segmental dilatation of the main pancreatic duct with asso ciated pancreatic atrophy as well as dilatation of multiple pancreatic duct side branches. Stable lo bular contour to the pancreas at the site of pancreatic duct transition at the junction of the pancre atic head-body. Findings can be secondary to IPMN. Pancreatic duct stricture and other pancreatic n eoplasm within the differential. Recommend endoscopic ultrasound for further evaluation. Report Dictated By: Rico De La Paz MD at 05/15/2019 8:59 AM Report E-Signed By: Rico De La Paz MD at 05/15/2019 9:21 AM WSN:[email or web address]
== END ==
LOC: MRI 01:19
PROVIDERS: ATTEND Family Medicine
DX: K86.9 Disease of pancreas, unspecified (principal)
CPT/HCPCS: 74183; A9577; J7050

== ENCOUNTER → 2019-05-24 | Outpatient (CLI) | payer MEDICARE, OTHER ==
[~2019-05-24] MED LIST changes: -GADOBENATE 529MG/1ML 15ML VIAL IVP ONE; -NS(*) 0.9% 50 ML BAG 50 ML ONE
--- NOTE | 2019-05-26 09:31 | RADIOLOGY IMAGING REPORT ---
FACILITY: [facility] - [place] PATIENT NAME: SARAI RADER : [id number] MR: [id number] V: [id number] EXAM DATE: [id number] ORDERING PHYSICIAN: JONEL FRAZIER TECHNOLOGIST: Giselle Loyola PROCEDURE:LEFT DIGITAL MAMMOGRAM DIAGNOSTIC WITH CAD ASSISTED INTERPRETATION & 3D TOMOSYNTHESIS REASON FOR STUDY: Follow up spiculation Left breast on prior MR FAMILY HISTORY OF BREAST CANCER: None BREAST PROCEDURES/TREATMENTS: Malignant lumpectomy Right breast in 2012 & radiation therapy both breasts COMPARISON STUDIES: Mammogram 08/17/18, 06/18/14, 06/12/14, 05/25/14, 05/24/13 & prior breast MR 10/07/18 MAMMOGRAM VIEWS OBTAINED: 2D & 3D full field Left CC & MLO projections & 2D full field Left XCC projection BREAST DENSITY: The Left breast is heterogeneously dense which can obscure small masses. MAMMOGRAM FINDINGS: The parenchymal pattern has remained stable allowing for difference in mammographic technique & patient positioning. Again there is an area of architectural distortion in the upper outer quadrant of the Left breast that actually appears less prominent when compared to the 2018 mammogram. This is in the location of a prior lumpectomy & likely represents scarring. DIAGNOSTIC CATEGORY 3--PROBABLY BENIGN FINDING. RECOMMENDATIONS: Three MONTH FOLLOW-UP DIAGNOSTIC MAMMOGRAM: BILATERAL BREASTS. IMPRESSION: BIRADS 3: Probably benign finding. Area of architectural distortion in the upper outer quadrant of the Left breast is in the previous lumpectomy site likely representing scarring. Of note the patient will be due for her annual mammogram in July of 2019. Dictated by: Debbie Aguirre M.D. on 05/24/2019 at 17:53 Transcribed by: ELE on 05/25/2019 at 13:55 Approved by: Debbie Aguirre M.D. on 05/26/2019 at 9:27 [facility]
== END ==
LOC: MAMO 01:33
PROVIDERS: ATTEND Internal Medicine Hematology
DX: C50.911 Malignant neoplasm of unspecified site of right female breast (principal); C79.51 Secondary malignant neoplasm of bone
CPT/HCPCS: 77061; 77065